=== PATIENT | female | born 1995 | race Caucasian/White ===

== ENCOUNTER 2017-01-03 13:12 | Emergency (ER) | payer BC ==
[2017-01-03 13:18] VITALS: BP 120/79; BMI 34.3
--- NOTE | 2017-01-03 14:26 | DR.GENAD ---
HPI - PCP Primary Care Physician: wiliam cisneros - HPI Comment HPI Comment: PAIN GETTING WORSE. - Complaint/Symptoms Chief Complaint Doctors Comments: LEFT FLANK AND LEFT ABDOMEN PAIN TIMES 6 MONTHS INTERMITTENTLY. PERSISTENT TIMES 3 DAYS WITH NAUSEA. NO FEVER OR DYSURIA. Chief Complaint:: patient stated she has been having left side hurting for 6 months but she has been vomiting for 3 days. she stated she was told it may be her gallbladder. - Nurses notes reviewed Nurses Notes Review: Yes - Source History Provided: Patient - Mode of Arrival Mode of Arrival: Ambulatory - Timing Onset of Chief Complaint: 07/05/16 Came on: Gradually - Duration Duration: Intermittent Duration: Weeks - Severity Severity: Moderate PMH - PMH Past Medical History: No Past Surgical History: Yes Surgical History: Appendectomy, Tonsillectomy - Family History History of Family Medical Conditions: No - Social History Does patient currently use any type of tobacco product: No Have you used tobacco products in the last 12 months: No Type of Tobacco Use: None Does any household member use tobacco: No Alcohol Use: None Do you use any recreational Drugs:: No Lives With: Family Lives Where: Home - infectious screening In the last 2 months have you had wt loss of >10#?: NO Have you had fever, night sweats or hemotysis?: No Have you traveled outside the country in the last 6 months?: No Isolation: Standard ROS - Review of Systems Constitutional: No Symptoms Reported Eyes: No Symptoms Reported ENTM: No Symptoms Reported Respiratoy: No Symptoms Reported Cardiovascular: No Symptoms Reported Gastrointestinal/Abdominal: No Symptoms Reported Genitourinary: No Symptoms Reported Neurological: No Symptoms Reported Musculoskeletal: Back Pain (LT FLANK PAIN) Integumentary: No Symptoms Reported Hematologic/Lymphatic: No Symptoms Reported Endocrine: No Symptoms Reported All Other Systems: Reviewed and Negative PE - Vital Signs Vitals: Temperature 98.3 F Pulse Rate 85 Respiratory Rate 16 Blood Pressure 120/79 O2 Sat by Pulse Oximetry 100 - General Limitations: No Limitations General Appearance: Alert - Head Head Exam: Normal Inspection - Eyes Eye exam: Normal Appearance - ENT ENT Exam: Normal External Ear Exam External Ear Exam: Normal External Inspection TM/Canal Exam: Bilateral Normal Nose Exam: Normal Nose Exam Mouth Exam: Normal Inspection Throat Exam: Normal Inspection - Neck Neck Exam: Trachea Midline - Chest Chest Inspection: Symmetric Chest Wall Rise - Respiratory Respiratory Exam: Normal Lung Sounds Bilat Respiratory Exam: Bilateral Clear to Auscultation - Cardiovascular Cardiovascular Exam: Regular Rate, Normal Rhythm, Normal Heart Sounds - Abdominal Exam Abdominal Exam: Normal Bowel Sounds, Soft, Tenderness Abdominal Tenderness: LUQ, LLQ, Moderate - Back Back Exam: Other (LT FLANK TENDERNESS) - Neurologic Neurological Exam: Alert, Oriented X3 - Psychiatric Psychiatric Exam: Normal Affect, Normal Mood - Skin Skin Exam: Normal Color MDM - Differential Diagnosis Differential Diagnosis: LEFT FLANK PAIN, ABDOMINAL PAIN, UTI, KIDNEY STONE Course - Treatment Treatment: SEE ORDERS. - Education/Counseling Education/Counseling: Patient, Education Educated On: Diagnosis, Needs for Follow Up ROR - Labs Reviewed Laboratory Results Reviewed?: Yes Result Diagrams: 01/03/17 14:40 01/03/17 14:40 Laboratory: WBC 8.9 X10^3/uL (3.6-10.0) 01/03/17 14:40 RBC 4.16 X10^6/uL (3.5-5.4) 01/03/17 14:40 Hgb 12.1 g/dL (12.0-16.0) 01/03/17 14:40 Hct 35.6 % (36.0-47.0) L 01/03/17 14:40 MCV 85.7 fL (80.0-100.0) 01/03/17 14:40 MCH 29.2 pg (27.0-34.0) 01/03/17 14:40 MCHC 34.0 g/dL (33.0-35.0) 01/03/17 14:40 RDW 14.1 % (11.6-16.5) 01/03/17 14:40 Plt Count 279 X10^3/uL (150.0-450.0) 01/03/17 14:40 MPV 8.6 fL (7.4-11.0) 01/03/17 14:40 Neut % 57.2 % (42.0-75.0) 01/03/17 14:40 Lymph % 34.7 % (21.0-51.0) 01/03/17 14:40 [place] % 5.0 % (0.0-13.0) 01/03/17 14:40 Eos % 2.6 % (0.9-2.9) 01/03/17 14:40 Baso % 0.5 % (0.2-1.0) 01/03/17 14:40 Neut # 5.1 x10^3/uL (2.2-4.8) H 01/03/17 14:40 Lymph # 3.1 X10^3/uL (1.3-2.9) H 01/03/17 14:40 [place] # 0.4 x10^3/uL (0.3-0.8) 01/03/17 14:40 Eos # 0.2 x10^3/uL (0.0-0.2) 01/03/17 14:40 Baso # 0.0 X10^3/uL (0.0-0.1) 01/03/17 14:40 Absolute Nucleated RBC 0.0 /100WBC 01/03/17 14:40 Sodium 142 mmol/L (136-145) 01/03/17 14:40 Corrected Sodium TNP 01/03/17 14:40 Potassium 3.9 mmol/L (3.5-5.1) 01/03/17 14:40 Chloride 105 mmol/L (98-107) 01/03/17 14:40 Carbon Dioxide 31.8 mmol/L (21-32) 01/03/17 14:40 BUN 11 mg/dL (7-18) 01/03/17 14:40 Creatinine 0.82 mg/dL (0.55-1.02) 01/03/17 14:40 Est GFR (MDRD) Af Amer > 60 (>60) 01/03/17 14:40 Est GFR (MDRD) Non-Af > 60 (>60) 01/03/17 14:40 Glucose 103 mg/dL (65-99) H 01/03/17 14:40 Calcium 8.7 mg/dL (8.5-10.1) 01/03/17 14:40 Corrected Calcium TNP 01/03/17 14:40 Total Bilirubin 0.40 mg/dL (0.2-1.0) 01/03/17 14:40 AST 17 Units/L (15-37) 01/03/17 14:40 ALT 24 Units/L (12-78) 01/03/17 14:40 Alkaline Phosphatase 93 Units/L (46-116) 01/03/17 14:40 Total Protein 7.9 g/dL (6.4-8.2) 01/03/17 14:40 Albumin 3.5 g/dL (3.4-5.0) 01/03/17 14:40 Globulin 4.4 g/dL (2.5-4.5) 01/03/17 14:40 Albumin/Globulin Ratio 0.8 Ratio (1.1-2.1) L 01/03/17 14:40 Amylase 47 Units/L (25-115) 01/03/17 14:40 Lipase 86 Units/L (73-393) 01/03/17 14:40 HCG, Qual Negative <10 mIU/mL 01/03/17 14:40 Specimen Type Clean catch urine 01/03/17 17:31 Urine Color Yellow (YELLOW) 01/03/17 17:31 Urine Appearance Clear (CLEAR) 01/03/17 17:31 Urine pH 5.0 (5.0 - 8.0) 01/03/17 17:31 Ur Specific [place] 1.025 (1.000-1.030) 01/03/17 17:31 Urine Protein Negative (NEGATIVE) 01/03/17 17:31 Urine Glucose (UA) Negative (NEGATIVE) 01/03/17 17:31 Urine Ketones Negative (NEGATIVE) 01/03/17 17:31 Urine Occult Blood Negative (NEGATIVE) 01/03/17 17:31 Urine Nitrite Negative (NEGATIVE) 01/03/17 17:31 Urine Bilirubin Negative (NEGATIVE) 01/03/17 17:31 Urine Urobilinogen Normal (NORMAL) 01/03/17 17:31 Ur Leukocyte Esterase 1+ (NEGATIVE) 01/03/17 17:31 Urine RBC 0-2 /HPF (NEGATIVE) 01/03/17 17:31 Urine WBC 0-2 /HPF (NEGATIVE) 01/03/17 17:31 Ur Squamous Epith Cells Negative /HPF (NEGATIVE) 01/03/17 17:31 Urine Bacteria Trace /HPF (NEGATIVE) 01/03/17 17:31 Ur Culture Indicated? No/not indicated 01/03/17 17:31 - XRAY XRAY Interpreted by: Radiologist XRAY Findings: REPORT DISCUSS WITH PATIENT. - Diagnosis Discharge Problem: Abdominal pain, Flank pain - Discharge Plan Disposition: 01 HOME, SELF-CARE Condition: Stable Prescriptions: Ibuprofen [MOTRIN TAB 600 MG *] 600 mg PO TID PRN #20 tab PRN Reason: Pain/Inflammation Ranitidine HCl [ZANTAC TAB 150 MG *] 150 mg PO BID #20 tab - Follow ups/Referrals Follow ups/Referrals: WILIAM CISNEROS [Primary Care Provider] - 3 days - Instructions Instructions: Abdominal Pain, Adult, [id number], Flank Pain, [id number] Additional Instructions: return to ed if worse.
[2017-01-03 14:51] LABS: BASOPHILS % (AUTO) 0.5 % (0.2-1.0); EOSINOPHILS # (AUTO) 0.2 x10^3/uL (0.0-0.2); EOSINOPHILS % (AUTO) 2.6 % (0.9-2.9); HEMATOCRIT 35.6 % (36.0-47.0); HEMOGLOBIN 12.1 g/dL (12.0-16.0); LYMPHOCYTES # (AUTO) 3.1 X10^3/uL (1.3-2.9); LYMPHOCYTES % (AUTO) 34.7 % (21.0-51.0); MEAN CORPUSCULAR HEMOGLOBIN 29.2 pg (27.0-34.0); MEAN CORPUSCULAR VOLUME 85.7 fL (80.0-100.0); MEAN PLATELET VOLUME 8.6 fL (7.4-11.0); MONOCYTES # (AUTO) 0.4 x10^3/uL (0.3-0.8); NEUTROPHILS # (AUTO) 5.1 x10^3/uL (2.2-4.8); NEUTROPHILS % (AUTO) 57.2 % (42.0-75.0); PLATELET COUNT 279 X10^3/uL (150.0-450.0); RED BLOOD COUNT 4.16 X10^6/uL (3.5-5.4); RED CELL DISTRIBUTION WIDTH 14.1 % (11.6-16.5); WHITE BLOOD COUNT 8.9 X10^3/uL (3.6-10.0)
[2017-01-03 14:57] LABS: SERUM PREGNANCY TEST, QUAL NEGATIVE <10 mIU/mL
[2017-01-03 15:00] LABS: ALANINE AMINOTRANSFERASE 24 Units/L (12-78); ALBUMIN 3.5 g/dL (3.4-5.0); ALKALINE PHOSPHATASE 93 Units/L (46-116); AMYLASE 47 Units/L (25-115); ASPARTATE AMINO TRANSFERASE 17 Units/L (15-37); BLOOD UREA NITROGEN 11 mg/dL (7-18); CALCIUM 8.7 mg/dL (8.5-10.1); CARBON DIOXIDE 31.8 mmol/L (21-32); CHLORIDE 105 mmol/L (98-107); CREATININE 0.82 mg/dL (0.55-1.02); GLUCOSE 103 mg/dL (65-99); LIPASE 86 Units/L (73-393); SODIUM 142 mmol/L (136-145); TOTAL PROTEIN 7.9 g/dL (6.4-8.2); eGFR BLACK RACES > 60 (>60); eGFR NON BLACK RACES > 60 (>60)
--- NOTE | 2017-01-03 16:21 | CT ---
CT ABDOMEN AND PELVIS WITHOUT CONTRAST CLINICAL HISTORY: 21-year-old female with bilateral flank pain and vomiting. COMPARISON: None. TECHNIQUE: Multiple contiguous computed tomographic axial images of the abdomen and pelvis were obta ined without the use of oral or intravenous contrast. Images were reformatted in the coronal and sag ittal planes. FINDINGS: The lung bases demonstrate no evidence of focal air-space opacification, pleural effusion, pneumotho rax, or suspicious pulmonary nodules. The imaged inferior mediastinum and heart are normal in appea michelle without evidence of pericardial effusion. The liver, gallbladder, pancreas, and spleen are within normal limits for noncontrast imaging. The adrenal glands and kidneys are normal bilaterally. There are no nephroureteral stones or perinep hric fluid collections. There is no evidence of hydroureteronephrosis and the ureters run in an unob structed course to a well distended urinary bladder. The uterus is anteverted and normal in size. The ovaries, vagina and perineum are within normal cheung its. IUD in place. Status post appendectomy. The bowel is without obstruction or inflammation and there is no free flu id or free air within the peritoneal cavity. There are no pathologically enlarged lymph nodes in th e abdomen or pelvis. The arteriovascular structures are within normal limits for a study without contrast. Soft tissues are normal. The osseous structures are intact without fracture or malalignment. IMPRESSION: No acute intra-abdominal or intrapelvic process to account for patient's symptoms.. Reported By:
[2017-01-03 17:38] LABS: BILIRUBIN,URINE NEGATIVE (NEGATIVE); BLOOD/HEMOGLOBIN,URINE NEGATIVE (NEGATIVE); GLUCOSE, URINE NEGATIVE (NEGATIVE); KETONES,URINE NEGATIVE (NEGATIVE); LEUKOCYTE ESTERASE ,URINE 1+ (NEGATIVE); NITRITES,URINE NEGATIVE (NEGATIVE); PROTEIN,URINE NEGATIVE (NEGATIVE); UROBILINOGEN,URINE NORMAL (NORMAL)
[2017-01-03 17:42] LABS: COLOR,URINE YELLOW (YELLOW)
[2017-01-03 17:43] LABS: APPEARANCE,URINE CLEAR (CLEAR); BACTERIA,URINE TRACE /HPF (NEGATIVE); RBC,URINE 0-2 /HPF (NEGATIVE); SQUAMOUS EPITHELIAL CELL,UR NEGATIVE /HPF (NEGATIVE)
== END 2017-01-03 17:33 | disposition home or self-care (01) ==
LOC: ER 13:34
DX: R10.84 Generalized abdominal pain (principal)
CPT/HCPCS: 36415; 74176; 80053; 81001; 82150; 83690; 84703; 85025; 99282; 99283

== ENCOUNTER → 2017-04-04 | Outpatient (CLI) | payer BC ==
[2017-02-11 08:49] VITALS: BP 110/73
--- NOTE | 2017-04-05 07:26 | RAD ---
Examination: Right foot, three views History: Contusion Findings: There is no evidence for fracture, dislocation or significant soft tissue deformity. Joint spaces are symmetric and normal. Impression: No recent injury identified. Reported By:
== END ==
LOC: RAD 16:26
PROVIDERS: ATTEND Obstetrics & Gynecology Obstetrics
DX: S90.31XA Contusion of right foot, initial encounter (principal); X58.XXXA Exposure to other specified factors, initial encounter
CPT/HCPCS: 73630